=== PATIENT | female | born 1970 | race Caucasian/White ===

== ENCOUNTER 2020-02-22 14:17 | Emergency (ER) | payer SELFPAY ==
[~2020-02-22] VITALS: Ht 167.6 cm; Wt 93.0 kg
[2020-02-22 15:01] VITALS: BP 154/86
--- NOTE | 2020-02-22 16:37 | NUR ---
covid 19 swab collected and sent to lab
--- NOTE | 2020-02-22 16:39 | NUR ---
Patient discharged to home in stable condition. Written and verbal after care instructions given. Patient verbalizes understanding of instruction.
--- NOTE | 2020-02-24 22:40 | NUR ---
NOTIFIED OF COVID RESULTS, PT IS NEGATIVE FOR COVID
== END 2020-02-22 16:39 | disposition home or self-care (01) ==
LOC: ER 14:20
DX: R05 Cough (principal)
CPT/HCPCS: 87426; 99283; C9803; U0003